=== PATIENT | female | born 1985 | race Caucasian/White ===

== ENCOUNTER 2019-08-19 05:00 | Day surgery (SDC) | payer OTHER ==
[2019-08-18 09:14] LABS: HEMATOCRIT 35.5 % (36.0-48.0); HEMOGLOBIN 11.5 g/dL (12-16); MCH 26.7 pg (26.0-34.0); MCHC 32.4 g/dL (31.0-37.0); MCV 82.6 fL (80.0-100.0); MEAN PLATELET VOLUME 9.4 fL (7.4-10.4); RBC 4.3 10x6/uL (4.00-5.40); WBC 5.6 10x3/uL (4.8-10.8)
[~2019-08-19] VITALS: Ht 162.6 cm; Wt 108.9 kg
--- NOTE | ~2019-08-19 | OP ---
PATIENT NAME: SYLVIA FAM JEY MEDICAL RECORD: [id number] :89 LOCATION:D.OPS ADMISSION DATE: SURGEON: JULIO BHATT DPM DATE OF OPERATION: 08/19/2019 PREOPERATIVE DIAGNOSES: 1. Hallux abductovalgus, left foot. 2. Instability, left first met cuneiform joint. POSTOPERATIVE DIAGNOSES: 1. Hallux abductovalgus, left foot. 2. Instability, left first met cuneiform joint. PROCEDURES: 1. Left Bruce bunionectomy. 2. Left first met cuneiform joint fusion. ANESTHESIA: Preoperative popliteal block per the anesthesia department as well as intraoperative general anesthesia. HEMOSTASIS: Left thigh tourniquet at 350 mmHg. PREOPERATIVE DETAILS: The patient was taken to the operating room and placed on the operating table in supine position followed by induction of general anesthesia. This was followed by left extremity being prepped and draped in the usual aseptic technique followed by exsanguination and inflation of tourniquet. PROCEDURE #1: Bruce bunionectomy, left foot: A 15-blade was used to create an incision from the dorsal medial aspect of the first medial cuneiform distally to the base of proximal phalanx of the hallux. The incision was deepened down through subcutaneous tissue being sure to avoid all vital structures. Dissection was carried down to the first MPJ where an inverted L capsulotomy was performed and the medial capsular flap was reflected. The head of first metatarsal was delivered and a sagittal saw was used to resect the medial eminence. Attention was then directed to the first interspace where a lateral release was performed. PROCEDURE #2: First met cuneiform joint fusion, left foot. The incision as described above was carried down to the periosteum and the first met cuneiform joint was exposed. A sagittal saw was used to resect the joint. Temporary fixation was placed and a 5-hole plate was placed with 1 screw crossing through the plate and across the fusion site and excellent rigid internal fixation. Good alignment was verified utilizing a C-arm. The wound was flushed. The deep tissue as well as the joint capsule was reapproximated with 2-0 Vicryl, the subcutaneous tissue with 4-0 Rapide and the skin was closed with 4-0 Rapide in a subcuticular technique followed by Dermabond. Adaptic, 4 x 4, and Conform were used to dress the wound followed by application of modified Lorenzo compression dressing. Tourniquet was deflated. POSTOPERATIVE DETAILS: The patient tolerated the procedure well and left the OR with vital signs stable and vascular status at preoperative levels. The patient was transported to recovery per anesthesia in stable condition. TRANSINT:[id number] Voice Confirmation ID: [id number] DOCUMENT ID: [id number] OPERATIVE REPORT [id number] SYLVIA FAM MCKAY DPM CC: [id number] DICTATION DATE: 08/19/19834 SITE LEAD: 08/19/19 1130 [facility] [place] 08/19/19 [facility] [address] [place] [address]
[~2019-08-19 05:00] MED LIST: PROZAC20 MG PO
[2019-08-19 05:37] VITALS: BP 142/77; Ht 162.6 cm; Wt 108.9 kg
--- NOTE | 2019-08-19 08:56 | NUR ---
XRAY DONE ORDERED. APPLIED ICE AND ELEVATED L.FOOT ORDERED. PT WILL BE TRANSFERRED BACK TO OUTPATIENT WHEN MEETS CRITERIA. HARD SCRIPT FOR ANBX AND PAIN MEDICATION IN CHART.
--- NOTE | 2019-08-19 09:37 | NUR ---
0914-REC'D FROM RR. DROWSY,EASILY AROUSED WITH VERBAL STIMULI. VSS. 02 VIA N/C2L. DRESSING TO LEFT FOOT CDI,CAP REFILL WNL,ABLE TO WIGGLE DIGITS. ICE WATER AT BEDSIDE.CL IN EASY REACH,SPOUSE AT BEDSIDE. TRAY ORDERED.
--- NOTE | 2019-08-19 09:45 | NUR ---
8068-FULL LIQUID TRAY TO ROOM.
--- NOTE | 2019-08-19 10:36 | NUR ---
1008-TOLERATED TRAY. ADMINISTERED NORCO 10/325MG 1 BY MOUTH PER ORDERS FOR PAIN TO SURGICAL FOOT RATING 7/10 DESCRIBES INTERMITTENT "THROBBING" VSS. DRESSING CDI,CAP REFILL WNL,ABLE TO WIGGLE DIGITS. REPORTS TINGLING NUMB FEELING WELL.
--- NOTE | 2019-08-19 10:40 | NUR ---
1025-IV REMOVED FROM RIGHT HAND WITH CATH INTACT,DISPOSED INTO SHARPS. COVERED SITE WITH GUAZE,SECURED WITH MEDIPORE TAPE. REVIEWED POST OPERATIVE INSTRUCTIONS AND FOLLOW UP APPOINTMENT.VERBALIZED UNDERSTANDING.
--- NOTE | 2019-08-19 10:41 | NUR ---
1031-REPORTS DECREASE IN PAIN. RATES 12/17. CONTINUE TO REPORT THROBBING. ESCORTED OUT VIA W/C WITH TO DRIVE HOME
== END 2019-08-19 10:31 | disposition home or self-care (01) ==
LOC: D.OPS 05:00 → D.PAN 07:00 → D.OPS 08:30
PROVIDERS: Anesthesiology; ATTEND Podiatrist
DX: M20.12 Hallux valgus (acquired), left foot (principal); M25.375 Other instability, left foot